=== PATIENT | female | born 1995 | race Caucasian/White ===

== ENCOUNTER 2016-12-08 02:15 | Emergency (ER) | payer OTHER ==
[2016-12-08 02:15] VITALS: BMI 24.7
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
[2016-12-08 04:05] VITALS: RESP 18; TEMP 97.5; O2SAT 99
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
[2016-12-08 04:46] VITALS: BP 116/77; PULSE 81
== END 2016-12-08 04:44 | disposition home or self-care (01) ==
LOC: C.ER 02:15 → C.EROB 02:15 → C.ER 04:44
DX: O9A.212 Injury, poisoning and certain other consequences of external causes complicating pregnancy, second trimester (principal); S16.1XXA Strain of muscle, fascia and tendon at neck level, initial encounter; V43.52XA Car driver injured in collision with other type car in traffic accident, initial encounter; Y92.410 Unspecified street and highway as the place of occurrence of the external cause; Z3A.23 23 weeks gestation of pregnancy

== ENCOUNTER 2017-04-06 01:11 | Emergency (ER) | payer OTHER ==
--- NOTE | 2017-04-06 01:59 | OBHP ---
Datetime: 04/06/2017 01:53 IP Adm Impression: Postterm, intrauterine ; No Active Labor IP Admit Plan: Discharge home Admit Comment, IP Provider: chief complaint-back pain HPI at 40.1 wga with c/o back pain on_off since 8.30pm.patient states that she was checued in the clinic 1 week ago and she was 2 cm dilated.denies vaginal bleeding or loss of fluid P Ob: x 2, 2011, female, 6 1/2 lb; [facility], no complications. 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 No h/o STIs PMH: asthma - age 5; none since. PSH: D_C NKDA Food allergy: seafood = throat closes Meds: PNV Soc Hx: denies tobacco, illicit drug or EtOH use. x 2 years. together, total of 10 Fam Hx: Mother alive 60 - no med. Father age 67 - heart conditions, h/o DM and pulm edema . No known fam h/o cancer P.E.: as above. WD in NAD. Awake, alert oriented to time, person and place. Pleasant and cooperati ve. Assessment: at 40.1 wga with c/o contraxtions.no active labor.exam essentially same as her ex am in the clinic last week.patient discharged home.active labor and secreased movement precauti ons given Pelvic Type - PN: Adequate Extremities - PN: Normal Abdomen - PN: Normal Back - PN: Normal General - PN: Normal Contraction Comments Provider: fide;eduar Gestation - Est Wks by US: 40.1 EGA AdmitDate IP: 40.1 Vital Signs Provider: Reviewed; Within Normal Limits IP Chief Complaint: Uterine contractions FHR Category Provider Fetus A: Category I Dilatation, Provider: 2 Effacement, Provider: 50 Station, Provider: -3 Genitourinary Exam: Normal DTRs - PN: Normal
[2017-04-06 06:12] VITALS: BP 124/79; PULSE 81; TEMP 96.6
== END 2017-04-06 01:55 | disposition home or self-care (01) ==
LOC: C.EROB 01:11
DX: O47.1 False labor at or after 37 completed weeks of gestation (principal); Z3A.40 40 weeks gestation of pregnancy

== ENCOUNTER 2017-04-08 07:55 | Inpatient (IN) | payer OTHER ==
[2017-04-08 12:29] VITALS: BMI 32.1
[2017-04-08] MEDS ORDERED: Lactated Ringer's 1,000 ML IV SCH (12:30)
[2017-04-08] MEDS ORDERED: Nalbuphine 20 mg/ml Inj (1 ml) IVP PRN (12:45)
[2017-04-08 13:44] LABS: BASO % 0.3 % (0.0-2.0); EOS # 0.1 K/uL (0.0-0.7); EOS % 0.5 % (0.0-4.0); HEMATOCRIT 30.2 % (34.0-47.0); LYMPH # 1.8 K/uL (1.0-4.3); LYMPH % 15.4 % (20.0-40.0); MEAN CELL VOLUME 77.2 fL (81.0-99.0); MEAN CORPUSCULAR HEMOGLOBIN 24.8 pg (27.0-31.0); MEAN CORPUSCULAR HGB CONC 32.1 g/dL (33.0-37.0); MEAN PLATELET VOLUME 9.2 fL (7.2-11.7); MONO # 1.1 K/uL (0.0-0.8); RED CELL DISTRIBUTION WIDTH 15.5 % (11.5-14.5); WHITE BLOOD COUNT 11.9 K/uL (4.8-10.8)
[2017-04-08 13:51] LABS: CHLORIDE 103 mmol/L (98-107); SODIUM 132 mmol/L (132-148); URINE BILIRUBIN NEGATIVE (NEGATIVE); URINE BLOOD NEGATIVE (NEGATIVE); URINE COLOR Straw (YELLOW); URINE GLUCOSE (UA) NORMAL (Normal); URINE KETONE NEGATIVE (NEGATIVE); URINE LEUKOCYTE ESTERASE TRACE Leu/uL (Negative); URINE PROTEIN NEGATIVE (NEGATIVE); URINE UROBILINOGEN NORMAL mg/dL (0.2-1.0); WBC URINE 1 /hpf (0-5)
[2017-04-08 13:52] LABS: POTASSIUM 3.8 mmol/L (3.6-5.2)
[2017-04-08 13:54] LABS: ALB/GLOB RATIO 0.9 (1.0-2.1); ALKALINE PHOSPHATASE 109 U/L (38-126); AST/SGOT 25 U/L (14-36); BILIRUBIN,TOTAL 0.3 mg/dL (0.2-1.3); BLOOD UREA NITROGEN 6 mg/dL (7-17); CARBON DIOXIDE 21 mmol/L (22-30); GFR AFRICAN-AMERICAN > 60; TOTAL PROTEIN 7.3 g/dL (6.3-8.3)
[2017-04-08 13:55] LABS: ALT/SGPT 33 U/L (9-52); CALCIUM 8.6 mg/dl (8.6-10.4); GLUCOSE,RANDOM 58 mg/dL (65-105)
[2017-04-09] MEDS ORDERED: Oxytocin 30 UNIT 30 UNITS/500 ML BAG IV PRN (05:00)
[2017-04-09] MEDS ORDERED: Oxytocin 30 UNIT 30 UNITS/500 ML BAG IV ONE (05:12)
--- NOTE | 2017-04-09 07:14 | OBPN ---
Datetime: 04/09/2017 07:12 IP Progress Impression: Normal progression of labor IP Procedures: Artificial ROM; Sterile Vag Exam Contraction Comments Provider: q1-5 FHR - Baseline A Provider: 130 IP Progress Note Comment: pt was seen at bed side ve / arom clear cont ptocin anticipate NICHD Accel Fetus A IP Provider: 15X15 FHR Category Provider Fetus A: Category I NICHD Variability Prov Fetus A: Moderate 6-25bpm Dilatation, Provider: 3 Effacement, Provider: 70 Station, Provider: -2 Datetime: 04/08/2017 12:31 Gestation - Est Wks by US: 41.0 Vital Signs Provider: Reviewed; Within Normal Limits NICHD Decel Fetus A IP Provider: None
[2017-04-09] MEDS ORDERED: Bupivacaine HCl 0.25% PF (10 ml) Inj ONE (08:07)
[2017-04-09] MEDS ORDERED: Bupivacaine 0.125%/FentaNYL 200 ML EPI ONE (08:08)
--- NOTE | 2017-04-09 08:54 | OBPN ---
Datetime: 04/09/2017 08:48 IP Procedures: Sterile Vag Exam Contraction Comments Provider: q1-4 FHR - Baseline A Provider: 130 IP Progress Note Comment: pt was examined at bed side ve 80/-2 cont pitocin anticipate NICHD Accel Fetus A IP Provider: 15X15 FHR Category Provider Fetus A: Category I NICHD Variability Prov Fetus A: Moderate 6-25bpm Dilatation, Provider: 4 Effacement, Provider: 80 Station, Provider: -2
[2017-04-09] MEDS ORDERED: Benzocaine/Menthol 20%-0.5% Topical Spray (60 ml) TOP PRN (10:15)
--- NOTE | 2017-04-09 10:22 | OBDS ---
MATERNAL INFORMATION Provider Comments: baby deliverd in yasmeen postion. endomtrial clean no comes pgar 9/9 LABOR SUMMARY EDC: 04/05/2017 00:00 No. Babies in Womb: 1 LABOR INFORMATION Cervical Ripening Agents: CERVIDIL REMOVED Group B Beta Strep: Negative (Annotations: 03/03/2017) MEMBRANES Membranes Rupture Method: Artificial Rupture of Membranes: 04/09/2017 07:11 Length of Rupture (hrs): 2.98 Amniotic Fluid Color: Clear Amniotic Fluid Amount: Moderate Amniotic Fluid Odor: Normal STAGES OF LABOR Stage 3 hrs: 0 Stage 3 min: 3 VAGINAL DELIVERY Laceration Extension: First Degree Laceration Type: Perineal Laceration Repair: Yes Laceration Repair Note: repaired with 3 chromic Initial Vag Sponge Count: 10 Final Vag Sponge Count: 10 Initial Vag Sharps Count: 1 Final Vag Sharps Count: 1 Sponge Count Correct: Yes Sharps Count Correct: Yes BABY A INFORMATION Delivery Date/Time: 04/09/2017 10:10 Method of Delivery: Vaginal Born in Route : No : N/A Forceps: N/A Vacuum Extraction: N/A Shoulder Dystocia : No SHOULDER DYSTOCIA BABY A Delivery Date/Time: 04/09/2017 10:10 PRESENTATION/POSITION BABY A Presentation: Cephalic Cephalic Presentation: Vertex Vertex Position: Left Occipital Posterior Breech Presentation: N/A PLACENTA INFORMATION BABY A Placenta Delivery Time : 04/09/2017 10:13 Placenta Method of Delivery: Spontaneous Placenta Status: Delivered SCORES BABY A Heart Rate 1 min: >100 bpm Resp Effort 1 min: Good Cry Reflex Irritability 1 min: Cough or Sneeze or Pulls Away Muscle Tone 1 min: Active Motion Color 1 min: Body Amasa, Extremities Blue Resuscitation Effort 1 min: Tactile Stimulation SCORE 1 MIN: 9 Heart Rate 5 min: >100 bpm Resp Effort 5 min: Good Cry Reflex Irritability 5 min: Cough or Sneeze or Pulls Away Muscle Tone 5 min: Active Motion Color 5 min: Body Amasa, Extremities Blue Resuscitation Effort 5 min: N/A SCORE 5 MIN: 9 INFANT INFORMATION BABY A Gestational Age at Delivery: 40.4 Gestational Status: Term Infant Outcome : Liveborn Infant Condition : Stable Sex: Male IDENTIFICATION/MEDS BABY A ID Band Number: [id number] ID Band Location: Left Leg; Left Arm Sensor Applied: Yes WEIGHT/LENGTH BABY A Birthweight (gms): 2945 Weight (lb): 6 Infant Weight (oz): 8 Length Inches: 19.50 Infant Length cms: 49.5 CORD INFORMATION BABY A No. Cord Vessels: 3 Suction: Mouth; Nose
[2017-04-09] MEDS ORDERED: Oxycodone/Acetaminophen 5/325 mg Tab PO PRN (10:30)
[2017-04-10 08:02] LABS: HEMATOCRIT 29.3 % (34.0-47.0); MEAN CELL VOLUME 77.5 fL (81.0-99.0); MEAN CORPUSCULAR HEMOGLOBIN 24.9 pg (27.0-31.0); MEAN CORPUSCULAR HGB CONC 32.1 g/dL (33.0-37.0); MEAN PLATELET VOLUME 8.9 fL (7.2-11.7); RED CELL DISTRIBUTION WIDTH 15.3 % (11.5-14.5); WHITE BLOOD COUNT 13.8 K/uL (4.8-10.8)
--- NOTE | 2017-04-10 12:58 | OBPPN ---
Datetime: 04/10/2017 07:18 PP Pain Prov: Within normal limits PP Nausea Prov: Denies PP Flatus Prov: No PP BM Prov: No PP Breasts Prov: Normal PP Heart Prov: Normal PP Lungs Prov: Normal PP Abdomen/Uterus Prov: Normal PP Lochia Prov: Normal PP Vulva/Perineum Prov: Normal PP CVA Tenderness Prov: Normal PP Extremities Prov: Normal PP C/S Incision Prov: Not Applicable PP Progress Prov: Normal PP Impression Prov: Normal progression PP Plan Prov: Continue present management PP Progress Note Prov: Patient was seen and examined at bedside this AM. Pt had red lochia, urinatin g well, tolerating liquid diet, and ambulating well. Pt has not passed flatus and had no BM yet. De nies f/c, n/v. Pt states that she is breast and bottle feeding. Objective: B/P: 114/77 H/H on admission (04/07) 9.7/30.2 Awake, Alert and oriented x3 Abdomen: non-tender, soft, fundus is firm about 1 fingerwidth below the level of umbilicus Lower Extremities: non-tender, non-swollen A/P: at 41 weeks delivered vaginally 04/09 1.) Continue pain managment 2.) Monitor post delivery H/H 3.) Encourage ambulation. Monitor for BM. 4.) Encourage breast feeding Attending Note: Patient seen, evaluated and examined with Resident on rounds earlier this morning. I agree with t he documentation of findings, assessment, and plan as above, with the addition of patient was started on iron supplementation twice a day. Anticipate discharge home 04/11/17 Vital Signs Provider PP: Reviewed; Within Normal Limits
[2017-04-10 16:04] VITALS: O2SAT 99
[2017-04-11 08:27] VITALS: BP 107/69; PULSE 74; RESP 18; TEMP 97.3
--- NOTE | 2017-04-11 08:57 | CP.PCM.DIS ---
Provider - Provider Date of Admission: 04/08/17 11:34 Attending physician: aRji Moralez MD Primary care physician: Dr. 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 Consult Time Spent in preparation of Discharge (in minutes): 30 Diagnosis - Discharge Diagnosis (1) Tubal Status: Acute Priority: Medium Onset Date: ~04/10/17 Hospital Course - Lab Results Lab Results: Most Recent Lab Values WBC 13.8 K/uL (4.8-10.8) H 04/10/17 07:50 RBC 3.78 Mil/uL (3.80-5.20) L 04/10/17 07:50 Hgb 9.4 g/dL (11.0-16.0) L 04/10/17 07:50 Hct 29.3 % (34.0-47.0) L 04/10/17 07:50 MCV 77.5 fL (81.0-99.0) L 04/10/17 07:50 MCH 24.9 pg (27.0-31.0) L 04/10/17 07:50 MCHC 32.1 g/dL (33.0-37.0) L 04/10/17 07:50 RDW 15.3 % (11.5-14.5) H 04/10/17 07:50 Plt Count 234 K/uL (130-400) 04/10/17 07:50 MPV 8.9 fL (7.2-11.7) 04/10/17 07:50 Neut % (Auto) 74.8 % (50.0-75.0) 04/08/17 13:39 Lymph % (Auto) 15.4 % (20.0-40.0) L 04/08/17 13:39 Gilliam % (Auto) 9.0 % (0.0-10.0) 04/08/17 13:39 Eos % (Auto) 0.5 % (0.0-4.0) 04/08/17 13:39 Baso % (Auto) 0.3 % (0.0-2.0) 04/08/17 13:39 Neut # 8.9 K/uL (1.8-7.0) H 04/08/17 13:39 Lymph # 1.8 K/uL (1.0-4.3) 04/08/17 13:39 Gilliam # 1.1 K/uL (0.0-0.8) H 04/08/17 13:39 Eos # 0.1 K/uL (0.0-0.7) 04/08/17 13:39 Baso # 0.0 K/uL (0.0-0.2) 04/08/17 13:39 Sodium 132 mmol/L (132-148) 04/08/17 13:39 Potassium 3.8 mmol/L (3.6-5.2) 04/08/17 13:39 Chloride 103 mmol/L (98-107) 04/08/17 13:39 Carbon Dioxide 21 mmol/L (22-30) L 04/08/17 13:39 Anion Gap 12 (10-20) 04/08/17 13:39 BUN 6 mg/dL (7-17) L 04/08/17 13:39 Creatinine 0.5 mg/dL (0.7-1.2) L 04/08/17 13:39 Est GFR ( Amer) > 60 04/08/17 13:39 Est GFR (Non-Af Amer) > 60 04/08/17 13:39 Random Glucose 58 mg/dL (65-105) L 04/08/17 13:39 Calcium 8.6 mg/dl (8.6-10.4) 04/08/17 13:39 Total Bilirubin 0.3 mg/dL (0.2-1.3) 04/08/17 13:39 AST 25 U/L (14-36) 04/08/17 13:39 ALT 33 U/L (9-52) 04/08/17 13:39 Alkaline Phosphatase 109 U/L (38-126) 04/08/17 13:39 Total Protein 7.3 g/dL (6.3-8.3) 04/08/17 13:39 Albumin 3.4 g/dL (3.5-5.0) L 04/08/17 13:39 Globulin 3.9 gm/dL (2.2-3.9) 04/08/17 13:39 Albumin/Globulin Ratio 0.9 (1.0-2.1) L 04/08/17 13:39 Urine Color Straw (YELLOW) 04/08/17 13:39 Urine Clarity Clear (Clear) 04/08/17 13:39 Urine pH 8.0 (5.0-8.0) 04/08/17 13:39 Ur Specific [place] 1.009 (1.003-1.030) 04/08/17 13:39 Urine Protein Negative mg/dL (NEGATIVE) 04/08/17 13:39 Urine Glucose (UA) Normal mg/dL (Normal) 04/08/17 13:39 Urine Ketones Negative mg/dL (NEGATIVE) 04/08/17 13:39 Urine Blood Negative (NEGATIVE) 04/08/17 13:39 Urine Nitrate Negative (NEGATIVE) 04/08/17 13:39 Urine Bilirubin Negative (NEGATIVE) 04/08/17 13:39 Urine Urobilinogen Normal mg/dL (0.2-1.0) 04/08/17 13:39 Ur Leukocyte Esterase Trace Rhonda/uL (Negative) 04/08/17 13:39 Urine WBC (Auto) 1 /hpf (0-5) 04/08/17 13:39 Ur Squamous Epith Cells 10 /hpf (0-5) H 04/08/17 13:39 RPR Nonreactive (NONREACTIVE) 04/08/17 13:39 Blood Type B POSITIVE 04/08/17 13:39 Antibody Screen Negative 04/08/17 13:39 - Hospital Course Hospital Course: 25 years old female , LMP 02/24/17, presented to ED for persistent left lower back pain x past 2 weeks. Pt found to be recently by her PCP Dr. Thomas. In hospital, B HCG 4760 mIU, renal ultrasound showed non obstructing 2.4 mm echogenic focus consistent with calculus in lower pole of left kidney, present on prior study. Pelvic ultrasound revealed no gestational sac in uterus , left adnexal complex cyst 2.0 x 1.7 x 1.6 cm with increased vascularity - c/w ectopic ; a second complex cyst in the left adnexa, and normal right adnexa. Pt underwent left tubal , pt doing well post op, H/H stable. Denies nausea, vomiting, or abdominal pain. Pt to be discharged and f/u in clinic with Dr Hall in 1 week. - Date & Time of H&P Date of H&P: 04/10/17 Time of H&P: 23:48 Discharge Exam - Head Exam Head Exam: ATRAUMATIC, NORMOCEPHALIC - Eye Exam Eye Exam: EOMI, Normal appearance, PERRL. absent: Conjunctival injection Pupil Exam: PERRL - ENT Exam ENT Exam: Mucous Membranes Moist - Respiratory Exam Respiratory Exam: Clear to PA & Lateral, NORMAL BREATHING PATTERN. absent: Accessory Muscle Use, Respiratory Distress - Cardiovascular Exam Cardiovascular Exam: RRR, +S1, +S2. absent: Bradycardia, Tachycardia, Systolic Murmur - GI/Abdominal Exam GI & Abdominal Exam: Normal Bowel Sounds. absent: Distended, Guarding - Neurological Exam Neurological exam: Alert, Oriented x3 - Psychiatric Exam Psychiatric exam: Normal Affect, Normal Mood - Skin Skin Exam: Dry, Warm Additional comments: laparoscopic incision sites had minimal bleeding, sites clean and dry Discharge Plan - Discharge Medications Prescriptions: Ferrous Gluconate [Fergon] 324 mg PO BID #60 tab Ibuprofen [Motrin Tab] 600 mg PO Q6 PRN 30 Days tab PRN Reason: Pain, Moderate (4-7) - Follow Up Plan Condition: GOOD Disposition: HOME/ ROUTINE
--- NOTE | 2017-04-12 07:03 | OBPPN ---
Datetime: 04/11/2017 08:36 PP Pain Prov: Within normal limits PP Nausea Prov: Denies PP Flatus Prov: Yes PP BM Prov: Yes PP Breasts Prov: Normal PP Heart Prov: Normal PP Lungs Prov: Normal PP Abdomen/Uterus Prov: Normal PP Lochia Prov: Normal PP Vulva/Perineum Prov: Normal PP CVA Tenderness Prov: Normal PP Extremities Prov: Normal PP C/S Incision Prov: Not Applicable PP Progress Prov: Normal PP Impression Prov: Normal progression PP Plan Prov: Continue present management PP Progress Note Prov: Patient seen and examined at bedside this AM. Pt has minimal lochia, urinatin g well, tolerating regular diet, and ambulating well, +BM. Denies f/c, n/v. Pt states that she wants to breast and bottle feed. Objective: B/P: 115/71 H/H on admission (04/08) 9.7/30.2 H/H post delivery on 04/10: 9.4/29.3 Awake, Alert and oriented x3 Abdomen: non-tender, soft, fundus is firm about 2 fingerwidth below the level of umbilicus Lower Extremities: non-tender, non-swollen A/P: at 41 weeks delivered vaginally 04/09 1.) Continue pain managment 2.) Postdelivery hgb stable: 9.7->9.4. Continue with ferrous gluconate po bid. 3.) Encourage ambulation. Monitor for BM. 4.) Encourage breast feeding 5.) Will discharge home today Discussed with attending, Dr. Hall. Anna Solorio, PGY-1. Pt seen and discussed with resident and I agree with the above. Vital Signs Provider PP: Reviewed; Within Normal Limits
--- NOTE | 2017-04-12 07:05 | OBDCSUM ---
Datetime: 04/11/2017 14:30 Discharge Instructions, Provider: Routine instructions given Discharge Diagnosis, Provider: Term Delivered Contraception discussed, Prov: Yes Discharge Comment, Provider: Uncomplicated , Clinically Stable Discharge Diagnosis Prov Other: Uncomplicated , Clinically Stable
== END 2017-04-11 16:15 | disposition home or self-care (01) | DRG 373 ==
LOC: C.4D 11:34 → C.4M 04-09 13:20
PROVIDERS: ADMIT Obstetrics & Gynecology; ATTEND Obstetrics & Gynecology
PROC: 10E0XZZ Delivery of Products of Conception, External Approach (ICD-10-PCS; principal; 2017-04-09)
PROC: 0HQ9XZZ Repair Perineum Skin, External Approach (ICD-10-PCS; 2017-04-09)
PROC: 10907ZC Drainage of Amniotic Fluid, Therapeutic from Products of Conception, Via Natural or Artificial Opening (ICD-10-PCS; 2017-04-09)
PROC: 3E0P7VZ Introduction of Hormone into Female Reproductive, Via Natural or Artificial Opening (ICD-10-PCS; 2017-04-09)
DX: O70.0 First degree perineal laceration during delivery (principal); Z37.0 Single live birth; Z3A.41 41 weeks gestation of pregnancy

== ENCOUNTER 2018-08-08 14:21 | Emergency (ER) | payer OTHER ==
[2018-08-08 14:22] VITALS: BMI 32.1
[2018-08-08 14:40] VITALS: TEMP 98.2
--- NOTE | 2018-08-08 14:44 | C.PDOC ---
History Of Present Illness 22 year old female comes in to ER complaining of right lateral neck pain that started at 9:30 this morning. Patient reports the pain radiates to the right mid arm, and has a tingling sensation but she denies trauma or damage. 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 She has not taken any medications for the pain. Denies midline neck pain, dizziness, headache, or other complaints. Time Seen by Provider: 08/08/18 14:41 Chief Complaint (Nursing): Upper Extremity Problem/Injury History Per: Patient History/Exam Limitations: no limitations Onset/Duration Of Symptoms: Hrs Current Symptoms Are (Timing): Still Present Past Medical History Reviewed: Historical Data, Nursing Documentation, Vital Signs Vital Signs: Last Vital Signs Temp 98.2 F 08/08/18 14:36 Pulse 89 08/08/18 14:36 Resp 20 08/08/18 14:36 BP 118/82 08/08/18 14:36 Pulse Ox 100 08/08/18 14:36 - [facility] Procedures (04/08/17) DELIVERY OF PRODUCTS OF CONCEPTION, EXTERNAL APPROACH (04/08/17) DRAINAGE OF AMNIOTIC FL, THERAP FROM POC, VIA OPENING (04/08/17) REPAIR PERINEUM SKIN, EXTERNAL APPROACH (04/08/17) Family History: States: No Known Family Hx - Social History Hx Alcohol Use: Yes Hx Substance Use: No - Immunization History Hx Tetanus Toxoid Vaccination: No Hx Influenza Vaccination: No Hx Pneumococcal Vaccination: No Review Of Systems Constitutional: Negative for: Fever, Chills Musculoskeletal: Positive for: Neck Pain, Arm Pain (Right) Neurological: Negative for: Headache, Dizziness Physical Exam - Physical Exam Appears: Non-toxic, No Acute Distress Skin: Warm, Dry Head: Atraumatic, Normacephalic Eye(s): bilateral: Normal Inspection Oral Mucosa: Moist Neck: No Midline Cervical Tenderness, Supple, Other (Right lateral tenderness) Extremity: Normal ROM (Full ROM of arm and all joints), Tenderness (to the humerus and proximal forearm but no redness or erythema), Capillary Refill (less than 2 seconds) Pulses: Left Radial: Normal, Right Radial: Normal Neurological/Psych: Oriented x3, Normal Speech, Normal Cognition, Normal Motor, Normal Sensation, Other (awake, alert, and appropriate for age) ED Course And Treatment O2 Sat by Pulse Oximetry: 100 (RA) Pulse Ox Interpretation: Normal Medical Decision Making Medical Decision Making: Plan: --Toradol IM --Urine Test pt with neck pain radiating to arm, with tingling,. consistent with radiculopathy. feels dec pain s/p toradol. d/c motrin with pmd f/u Disposition Counseled Patient/Family Regarding: Diagnosis, Need For Followup, Rx Given - Disposition Referrals: [facility] [Outside] Disposition: HOME/ ROUTINE Disposition Time: 15:59 Condition: IMPROVED Additional Instructions: Take ibuprofen as directed for pain. Avoid heavy lifting. Follow up with your doctor, recommend outpatient mri of cervical spine. Return to ER for worse pain. numbness (loss of sensation), weakness to limbs or any other concerns. 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 - Scribe Statement The provider has reviewed the documentation as recorded by the Scribe Frida Platt All medical record entries made by the Daria were at my direction and personally dictated by me. I have reviewed the chart and agree that the record accurately reflects my personal performance of the history, physical exam, medical decision making, and the department course for this patient. I have also personally directed, reviewed, and agree with the discharge instructions and disposition.
[2018-08-08 16:12] VITALS: BP 110/72; PULSE 79; RESP 18
[2018-08-08 16:49] VITALS: O2SAT 100
== END 2018-08-08 16:12 | disposition home or self-care (01) ==
LOC: C.ER 14:21
DX: M54.12 Radiculopathy, cervical region (principal)
CPT/HCPCS: 81025; 96372; 99284; J1885